=== PATIENT | female | born 1995 | race Caucasian/White ===

== ENCOUNTER 2016-08-21 23:27 | Inpatient (IN) | payer OTHER ==
[~2016-08-21] VITALS: Ht 157.5 cm; Wt 83.6 kg
[~2016-08-21 23:27] MED LIST: NO MEDS; PREN1TAB49 PO
[2016-08-21 23:53] VITALS: Ht 157.5 cm; Wt 83.6 kg
[2016-08-22] VITALS: BP 109/57; PULSE 81; RESP 20
[2016-08-22] MEDS ORDERED: ONDANSETRON 4 MG INJ IV STA (00:01)
[2016-08-22] MEDS ORDERED: BUTORPHANOL 2 MG INJ IV ONE (00:30)
[2016-08-22] MEDS ORDERED: LACTATED RINGER'S 1,000 ML IV ONE (00:30)
[2016-08-22 01:00] LABS: ADD SCAN DIFF NO
[2016-08-22 01:02] LABS: BASOPHILS % 0.2 % (0.0-2.0); EOSINOPHILS # 0.1 10^3/ul (0.0-0.5); EOSINOPHILS % 0.9 % (0.0-7.0); HEMATOCRIT 31.9 % (37.0-47.0); HEMOGLOBIN 10.6 g/dl (12.0-16.0); LYMPHOCYTES # 1.3 10^3/ul (0.8-2.9); LYMPHOCYTES % 12.9 % (15.0-51.0); MEAN CORPUSCULAR HEMOGLOBIN 30.5 pg (29.0-33.0); MEAN CORPUSCULAR HGB CONC 33.2 g/dl (32.0-37.0); MEAN CORPUSCULAR VOLUME 91.7 fl (82.0-101.0); MEAN PLATELET VOLUME 10.3 fl (7.4-10.4); MONOCYTE # 0.6 10^3/ul (0.3-0.9); MONOCYTES % 6.4 % (0.0-11.0); NEUTROPHILS % 79.1 % (39.0-77.0); PLATELET COUNT 271 10^3/UL (140-415); RED BLOOD COUNT 3.48 10^6/ul (4.20-5.40); RED CELL DISTRIBUTION WIDTH 13.6 % (11.5-14.5); WHITE BLOOD COUNT 10.1 10^3/ul (4.8-10.8)
[2016-08-22 01:11] LABS: ADD UMIC NO; UR BILIRUBIN (Dip) NEGATIVE (NEGATIVE); UR BLOOD (Dip) NEGATIVE (NEGATIVE); UR CLARITY CLEAR (CLEAR); UR COLOR LT. YELLOW (YELLOW); UR GLUCOSE (Dip) NEGATIVE (NEGATIVE); UR KETONES (Dip) NEGATIVE (NEGATIVE); UR LEUKOCYTE ESTERASE (Dip) NEGATIVE (NEGATIVE); UR NITRITE (Dip) NEGATIVE (NEGATIVE); UR TOTAL PROTEIN (Dip) NEGATIVE (NEGATIVE); UR UROBILINOGEN (Dip) 0.2 E.U./dL (0.1-1.0)
[2016-08-22] MEDS: LACTATED RINGER'S 1,000 ML IV* SCH ×3 (01:17→16:00)
[2016-08-22 01:25] LABS: ALBUMIN 3.7 g/dl (3.3-4.9); ALBUMIN/GLOBULIN RATIO 1.27; CALCIUM 8.9 mg/dl (8.4-10.2); CREATININE 0.47 mg/dl (0.44-1.00); POTASSIUM 3.7 mmol/L (3.5-5.1); TOTAL PROTEIN 6.6 g/dl (6.1-8.1)
--- NOTE | 2016-08-22 02:18 | RADRPT ---
PROCEDURE: ULTRASOUND BIOPHYSICAL PROFILE CLINICAL INDICATION: 21-year-old female in labor for viability. TECHNIQUE: Multiple sonographic images were obtained in order to perform a biophysical profile The images were reviewed on a PACS workstation. COMPARISON: None. FINDINGS: The cervix appears closed with a length of 4.2 cm. There is a single viable intrauterine gestation. There is a breech presentation. Cardiac activity is present at 166 beats per minute. The placenta is anterior. The results of the biophysical profile are as follows: breathing movement = 2/2 Gross body movement = 2/2 tone = 2/2 Qualitative amniotic fluid volume = 2/2 Amniotic fluid index equals 15.9 cm. This yields a biophysical profile score of 8/8. IMPRESSION: Biophysical profile score is 8/8. .Yomi Kamara MD, Date Time Electronically viewed and signed by .Yomi Kamara MD, MD on 08/22/2016 02:18 .M/
--- NOTE | 2016-08-22 02:21 | RADRPT ---
PROCEDURE: ULTRASOUND OBSTETRICAL CLINICAL INDICATION: 21-year-old female in labor for size and date determination. TECHNIQUE: Multiple sonographic images of the pelvis were obtained. The images were reviewed on a PACS workstation. COMPARISON: Ultrasound biophysical profile obtained concurrently. FINDINGS: There is a single viable intrauterine gestation. Cardiac activity is present with 152 beats per min haley. There is a breech presentation. Measurements were made in order to determine age. The res ults are as follows: BPD = 7.07 cm, HC = 26.02 cm, AC = 24.53 cm, FL = 5.24 cm. This yields and estimated gestational ag e of approximately 28 weeks 2 days. The estimated date of delivery is November 12, 2016. The EFW = 1224 +/- 184 g (2 lb 11 oz). The GP is 7%. The placenta is anterior. There is no evidence for an abruption or placenta previa. IMPRESSION: Single viable intrauterine gestation of approximately 28 weeks 2 days with breech presentation. The estimated date of delivery is November 12, 2016. .Yomi Kamara MD, Date Time Electronically viewed and signed by .Yomi Kamara MD, on 08/22/2016 02:21 .M/
--- NOTE | 2016-08-22 02:24 | RADRPT ---
PROCEDURE: ULTRASOUND LIMITED ABDOMEN CLINICAL INDICATION: 21-year-old female with abdominal pain. TECHNIQUE: Multiple sonographic of the right upper quadrant of the abdomen were obtained. The imag es were reviewed on a PACS workstation. COMPARISON: None. FINDINGS: The pancreas is partially visualized and is otherwise without abnormal echogenicity. The liver displays normal echogenicity. The liver measures 16.8 cm in length. No evidence of intrah epatic biliary ductal dilatation is seen. The portal and hepatic veins are unremarkable. The gallbladder contains mild layering echogenic sludge. There is no evidence for shadowing stones. The gallbladder wall thickness is within normal limits measuring 2.1 mm. No pericholecystic fluid is seen. The common bile duct measures 3.3 mm and is not dilated. The right kidney displays normal echogenicity. The right kidney measures 10.3 cm in maximal length. There is mild right-sided hydronephrosis. No free fluid is seen. IMPRESSION: 1. Minimal sludge within the gallbladder. 2. Mild right-sided hydronephrosis. .Yomi Kamara MD, Date Time Electronically viewed and signed by .Yomi Kamara MD, on 08/22/2016 02:24 .M/
[2016-08-22] MEDS ORDERED: LACTATED RINGER'S 1,000 ML IV SCH (02:38)
--- NOTE | 2016-08-22 02:51 | HP ---
Date/Time of Note Date/Time of Note DATE: 08/22/16 TIME: 02:46 OB - History Hx of Present Free Text/Dictation @29+wks GA with Abdominal pain : 2 Para: 1 Care: Good Care Ultrasounds: Normal mid trimester US Obstetrical Complications: None Medical Complications: None Past Family/Social History * Past Medical, Surgical, Family and Obstetric Histories reviewed from chart. OB Admission Exam Vital Signs Vital Signs Vital Signs Date Time Temp Pulse Resp B/P Pulse Ox O2 Delivery O2 Flow Rate FiO2 08/22/16 00:00 97.7 81 20 109/57 Room Air Physical Exam Abdomen: Abnormal (RLQ tenderness) Extremities: Normal Cervical Dilatation: None Membranes: Intact Heart Rate: 140's Accelerations: Accelerations Present Decelerations: No Decelerations Varibility: Moderate Contractions on Admission: None Last 72 hours Lab Results CBC & BMP 08/22/16 00:55 Liver Function Test 08/22/16 00:55 Alanine Aminotransferase (ALT/SGPT) 25 Albumin 3.7 Alkaline Phosphatase 62 Aspartate Amino Transf (AST/SGOT) 16 Direct Bilirubin 0.00 Total Protein 6.6 OB Assessment/Plan Reason for admission: observation Plan: Expectant Management Other plan: Suspected Appendicitis: MRI Surgical consult Prenatology Neonatology Consult NPO Pain management Hospitalist consult ARIAN JEFFERSON M.D. Aug 22, 2016 02:51
--- NOTE | 2016-08-22 02:53 | QN ---
Documentation Comment ,call center coordinator hospitalist informed) ARIAN JEFFERSON M.D. Aug 22, 2016 02:53
[2016-08-22] MEDS: BUTORPHANOL 2 MG INJ IV PRN ×6 (05:21→18:25)
--- NOTE | 2016-08-22 15:45 | CONS ---
Date/Time of Note Date/Time of Note DATE: 08/22/16 TIME: 15:40 Assessment/Plan Assessment/Plan Chief Complaint/Hosp Course 21-year-old female 29 weeks with abdominal pain * Patient has had her appendix removed at 7 year of age. The remote possibility for stump appendicitis may exist, however, this is unlikely given the patient's history and clinical exam findings. * There does not appear to be any acute indication for surgical intervention. * Continue management per TUFTER HAND * If the patient continues to have pain may want to consider MRI. The above was discussed with the patient and the nurse at the bedside in full detail. I will be available to reconsult as needed. Problems: Consultation Date/Type/Reason Admit Date/Time Aug 22, 2016 at 02:36 Date of Consultation: Aug 22, 2016 Type of Consultation: GENERAL SURGERY Reason for Consultation Abdominal pain Hx of Present Illness The patient is a 21-year-old female who is 29 weeks who presented to the emergency room complaining of a 3 day history of abdominal pain. She describes the pain as being located in the right lower quadrant, epigastrium, suprapubic area and radiates to the right flank. She reports nausea/vomiting and constipation. She denies fever. She states she had a similar episode of pain in the past approximately 3 weeks ago which resolved with Tylenol. She has been afebrile and without leukocytosis. Surgical consult was called to evaluate for appendicitis. Of note, the patient reports that she had her appendix removed when she was 7 years old. The patient states that she is hungry and has been tolerating a regular diet. A 14 point review of systems was conducted and was negative except for that which is mentioned in HPI Past Medical History Medical History: no pertinent history Past Surgical History Past Surgical Hx: appendectomy Family History Significant Family History: no pertinent family hx Social History Smoking Status: Never smoker Exam/Review of Systems Vital Signs Vitals Vital Signs Date Time Temp Pulse Resp B/P Pulse Ox O2 Delivery O2 Flow Rate FiO2 08/22/16 00:00 97.7 81 20 109/57 Room Air Intake and Output 08/21/16 08/21/16 08/22/16 14:59 22:59 06:59 Intake Total 1750 ml Output Total 800 ml Balance 950 ml Exam GENERAL: Awake, alert, oriented x 3. No acute distress. SKIN: No jaundice. HEENT: PERRLA, EOMI, No Scleral Icterus NECK: Supple without JVD CARDIOVASCULAR: S1S2, regular rate and rhythm. No murmurs appreciated. RESPIRATORY: Clear to auscultation bilaterally. ABDOMEN: Gravid, soft, bowel sounds present, nondistended, there is mild epigastric tenderness to palpation and mild suprapubic tenderness to palpation. There is right lower quadrant tenderness to palpation. There is no evidence of rebound, guarding or diffuse peritonitis. EXTREMITIES: Free range of motion x 4. No cyanosis, edema, or clubbing. NEUROLOGIC: Cranial nerves II-XII are intact. Sensation is intact grossly. Results Result Diagram: 08/22/165408/22/1654 Results 24 hrs Laboratory Tests Test 08/22/16 00:15 08/22/16 00:55 Urine Color LT. YELLOW Urine Clarity CLEAR Urine pH 6.5 Urine Specific [place] 1.020 Urine Ketones NEGATIVE Urine Nitrite NEGATIVE Urine Bilirubin NEGATIVE Urine Urobilinogen 0.2 E.U./dL Urine Leukocyte Esterase NEGATIVE Urine Hemoglobin NEGATIVE Urine Glucose NEGATIVE Urine Total Protein NEGATIVE White Blood Count 10.1 Red Blood Count 3.48 L Hemoglobin 10.6 L Hematocrit 31.9 L Mean Corpuscular Volume 91.7 Mean Corpuscular Hemoglobin 30.5 Mean Corpuscular Hemoglobin Concent 33.2 Red Cell Distribution Width 13.6 Platelet Count 271 Mean Platelet Volume 10.3 Neutrophils % 79.1 H Lymphocytes % 12.9 L Monocytes % 6.4 Eosinophils % 0.9 Basophils % 0.2 Nucleated Red Blood Cells % 0.0 Neutrophils # 8.0 H Lymphocytes # 1.3 Monocytes # 0.6 Eosinophils # 0.1 Basophils # 0.0 Nucleated Red Blood Cells # 0.0 Sodium Level 139 Potassium Level 3.7 Chloride Level 110 Carbon Dioxide Level 19 L Anion Gap 14 Blood Urea Nitrogen 7 Creatinine 0.47 Glucose Level 91 Calcium Level 8.9 Total Bilirubin 0.0 L Direct Bilirubin 0.00 Indirect Bilirubin 0.0 Aspartate Amino Transf (AST/SGOT) 16 Alanine Aminotransferase (ALT/SGPT) 25 Alkaline Phosphatase 62 Total Protein 6.6 Albumin 3.7 Globulin 2.90 Albumin/Globulin Ratio 1.27 Amylase Level 92 Lipase 117 Medications Medications Current Medications Lactated Ringer's (Lr) 1,000 ml @ 125 mls/hr Q8H IV* Last administered on 08/22 07:32; Admin Dose 125 MLS/HR; Start 08/22/16 at 00:30 Butorphanol Tartrate (Stadol) 1 mg Q4 PRN IV PAIN Last administered on 14:45; Admin Dose 1 MG; Start 08/22/16 at 03:00 Procedures Procedures PROCEDURE: ULTRASOUND LIMITED ABDOMEN CLINICAL INDICATION: 21-year-old female with abdominal pain. TECHNIQUE: Multiple sonographic of the right upper quadrant of the abdomen were obtained. The images were reviewed on a PACS workstation. COMPARISON: None. FINDINGS: The pancreas is partially visualized and is otherwise without abnormal echogenicity. The liver displays normal echogenicity. The liver measures 16.8 cm in length. No evidence of intrahepatic biliary ductal dilatation is seen. The portal and hepatic veins are unremarkable. The gallbladder contains mild layering echogenic sludge. There is no evidence for shadowing stones. The gallbladder wall thickness is within normal limits measuring 2.1 mm. No pericholecystic fluid is seen. The common bile duct measures 3.3 mm and is not dilated. The right kidney displays normal echogenicity. The right kidney measures 10.3 cm in maximal length. There is mild right-sided hydronephrosis. No free fluid is seen. IMPRESSION: 1. Minimal sludge within the gallbladder. 2. Mild right-sided hydronephrosis. .Yomi Kamara MD, MD Date Time Electronically viewed and signed by .Yomi Kamara MD, MD on 08/22/2016 02:24 .M/ CC: ARIAN JEFFERSON M.D., MICHAEL A. MD Aug 22, 2016 15:45
--- NOTE | 2016-08-22 17:08 | CONS ---
Date/Time of Note Date/Time of Note DATE: 08/22/16 TIME: 16:58 Assessment/Plan Assessment/Plan Additional Assessment/Plan 21 yo F at 29wks and 6 days with R sided flank pain and abdominal pain ( non epigastric) likely CRISS in origin Recommendations: Patient already had abdominal ultrasound that does not show any significant findings other than the right-sided hydronephrosis which is likely associated. Considering that her pain is on the same side, there is a possibility of a right-sided nephrolithiasis however, due to patient's gravid status, were unable to do an x-ray or CAT scan which is better to visualize kidney stones. In view of that, the treatment would likely be the same to include pain control and aggressive IV hydration if she indeed had kidney stones. She also has pain is also located in the lower abdominal region in the left groin as well as umbilical area, which are most likely associated with either [place] Solomon contractions or musculoskeletal in origin. And as such I think for now we should focus on pain management and hydration and reevaluate patient and see how she does. Unfortunately patient is unable to get an MRI of the abdomen because she has braces. Thanks for the Consult. We will follow with you. Consultation Date/Type/Reason Admit Date/Time Aug 22, 2016 at 02:36 Date of Consultation: Aug 22, 2016 Type of Consultation: Medical Reason for Consultation Evaluation for epigastric pain. Referring Provider: CATHERINE MATHIS MD Hx of Present Illness Was called to see this 19-year-old female who had presented today with right- sided flank pain, as well as pain in the infra epigastric area. She was referred to us for epigastric pain but her pain is located more in the superior portion of her gravid abdomen. She is a 2 para 1 at 29 weeks and 6 days and has had an uneventful so far. She has had no nausea or vomiting associated with said pain, she has had no fever. She denies chest pain or shortness of breath. Pain is relieved by intravenous pain medicine given by the ladies underwear operator, but she states the medication just puts her to sleep and when she wakes up the pain is very again. Per the obstetric nurses, the patient has had no contractions. However pain sounds suspiciously like pseudo- contractions. She had an abdominal ultrasound which I have reviewed I does show some mild right-sided hydronephrosis but there is no evidence of kidney stones on that study. I . ROS: CONSTITUTIONAL: denies fever, chills, weight loss, weight gain HEENT: denies headaches, any vertigo, any sore throat or rhinorrhea. Eyes: No double or blurred vision or eye pain. CARDIOVASCULAR: no chest discomfort, chest pain, irregular rhythm, tachycardia or diaphoresis. RESPIRATORY: denies cough or shortness of breath or wheezing. GASTROINTESTINAL: The patient denies any nausea, vomiting, diarrhea or abdominal pain. GENITOURINARY: denies dysuria, frequency, urgency or hematuria. MUSCULOSKELETAL: also denies myalgias, arthralgias or edema. SKIN: denies rash or jaundice NEUROLOGIC: denies weakness, dizziness, focal neurological change or headache. PSYCHIATRIC: denies history of depression in the past, any suicidal ideation. substance abuse. ENDOCRINE: denies polyuria, polydipsia or hot or cold intolerance. HEMATOLOGIC: denies history of easy bruising, anemia or eczema. Past Medical History Medical History: no pertinent history Past Surgical History Past Surgical Hx: appendectomy Family History Significant Family History: no pertinent family hx Social History Alcohol Use: none Smoking Status: Never smoker Drug Use: none Exam/Review of Systems Vital Signs Vitals Vital Signs Date Time Temp Pulse Resp B/P Pulse Ox O2 Delivery O2 Flow Rate FiO2 08/22/16 00:00 97.7 81 20 109/57 Room Air Intake and Output 08/21/16 08/21/16 08/22/16 15:00 23:00 07:00 Intake Total 1875 ml Output Total 800 ml Balance 1075 ml Exam GENERAL APPEARANCE: Well developed, well nourished, anxiety SKIN: Gross inspection of the skin reveals no rashes, ulcerations or petechiae. HEENT: The sclerae were anicteric and conjunctivae were pink and moist. Extraocular movements were intact and pupils were equal, round, and reactive to light with normal accommodation. External inspection of the ears and nose showed no scars, lesions, or masses. Posterior pharynx was clear of erythema or exudate NECK: Supple and symmetric. There was no thyroid enlargement, and no tenderness , or masses were felt. CHEST: Normal AP diameter and movement . LUNGS: Auscultation of the lungs revealed normal breath sounds without any other adventitious sounds or rubs. CARDIOVASCULAR: There was a regular rate and rhythm without any murmurs, gallops , rubs. The carotid pulses were normal and 2+ bilaterally without bruits. Radial pulses were 2+ and symmetric. ABDOMEN: Soft and nontender with normal bowel sounds. No ascites was noted. LYMPH NODES: No lymphadenopathy was appreciated in the neck. MUSCULOSKELETAL: There was no tenderness or effusions noted. Muscle strength and tone were normal. EXTREMITIES: No cyanosis, clubbing or edema. NEUROLOGIC: Alert and oriented x 3. Normal affect PSYCHIATRIC: anxious Results Result Diagram: 08/22/16 0055 08/22/16 0055 Results 24 hrs Laboratory Tests Test 08/22/16 00:15 08/22/16 00:55 Urine Color LT. YELLOW Urine Clarity CLEAR Urine pH 6.5 Urine Specific [place] 1.020 Urine Ketones NEGATIVE Urine Nitrite NEGATIVE Urine Bilirubin NEGATIVE Urine Urobilinogen 0.2 E.U./dL Urine Leukocyte Esterase NEGATIVE Urine Hemoglobin NEGATIVE Urine Glucose NEGATIVE Urine Total Protein NEGATIVE White Blood Count 10.1 Red Blood Count 3.48 L Hemoglobin 10.6 L Hematocrit 31.9 L Mean Corpuscular Volume 91.7 Mean Corpuscular Hemoglobin 30.5 Mean Corpuscular Hemoglobin Concent 33.2 Red Cell Distribution Width 13.6 Platelet Count 271 Mean Platelet Volume 10.3 Neutrophils % 79.1 H Lymphocytes % 12.9 L Monocytes % 6.4 Eosinophils % 0.9 Basophils % 0.2 Nucleated Red Blood Cells % 0.0 Neutrophils # 8.0 H Lymphocytes # 1.3 Monocytes # 0.6 Eosinophils # 0.1 Basophils # 0.0 Nucleated Red Blood Cells # 0.0 Sodium Level 139 Potassium Level 3.7 Chloride Level 110 Carbon Dioxide Level 19 L Anion Gap 14 Blood Urea Nitrogen 7 Creatinine 0.47 Glucose Level 91 Calcium Level 8.9 Total Bilirubin 0.0 L Direct Bilirubin 0.00 Indirect Bilirubin 0.0 Aspartate Amino Transf (AST/SGOT) 16 Alanine Aminotransferase (ALT/SGPT) 25 Alkaline Phosphatase 62 Total Protein 6.6 Albumin 3.7 Globulin 2.90 Albumin/Globulin Ratio 1.27 Amylase Level 92 Lipase 117 Medications Medications Current Medications Lactated Ringer's (Lr) 1,000 ml @ 125 mls/hr Q8H IV* Last administered on 08/22t 16:00; Admin Dose 125 MLS/HR; Start 08/22/16 at 00:30 Butorphanol Tartrate (Stadol) 1 mg Q4 PRN IV PAIN Last administered on t 16:31; Admin Dose 1 MG; Start 08/22/16 at 03:00 Procedures Procedures PROCEDURE: ULTRASOUND LIMITED ABDOMEN CLINICAL INDICATION: 21-year-old female with abdominal pain. TECHNIQUE: Multiple sonographic of the right upper quadrant of the abdomen were obtained. The images were reviewed on a PACS workstation. COMPARISON: None. FINDINGS: The pancreas is partially visualized and is otherwise without abnormal echogenicity. The liver displays normal echogenicity. The liver measures 16.8 cm in length. No evidence of intrahepatic biliary ductal dilatation is seen. The portal and hepatic veins are unremarkable. The gallbladder contains mild layering echogenic sludge. There is no evidence for shadowing stones. The gallbladder wall thickness is within normal limits measuring 2.1 mm. No pericholecystic fluid is seen. The common bile duct measures 3.3 mm and is not dilated. The right kidney displays normal echogenicity. The right kidney measures 10.3 cm in maximal length. There is mild right-sided hydronephrosis. No free fluid is seen. IMPRESSION: 1. Minimal sludge within the gallbladder. 2. Mild right-sided hydronephrosis. .Yomi Kamara MD, MD Date Time Electronically viewed and signed by .Yomi Kamara MD, MD on 08/22/2016 02:24 .M/ CC: ARIAN JEFFERSON M.D., [place] M. Aug 22, 2016 17:08
[2016-08-22] MEDS ORDERED: HYDROCODONE/APAP (5/325) TAB PO PRN (17:30)
[2016-08-22] MEDS ORDERED: SOD CHLORIDE 0.9% 1,000 ML IV SCH (17:30)
[2016-08-22] MEDS: ONDANSETRON 4 MG INJ IV PRN ×2 (18:42→23:53)
[2016-08-22] MEDS: DEXTROSE 5%-LR 1,000 ML IV SCH (23:50)
[2016-08-23] MEDS: BUTORPHANOL 2 MG INJ IV PRN ×3 (00:01→15:10)
[2016-08-23] MEDS: DEXTROSE 5%-LR 1,000 ML IV SCH (07:17)
[2016-08-23] MEDS: ONDANSETRON 4 MG INJ IV PRN (07:44)
--- NOTE | 2016-08-23 10:03 | CONS ---
Date/Time of Note Date/Time of Note DATE: 08/23/16 TIME: 10:02 Assessment/Plan Assessment/Plan Additional Assessment/Plan 21 yo F at 29wks and 6 days with R sided flank pain and abdominal pain ( non epigastric) likely CRISS in origin Recommendations: Patient already had abdominal ultrasound that does not show any significant findings other than the right-sided hydronephrosis which is likely associated. Considering that her pain is on the same side, there is a possibility of a right-sided nephrolithiasis however, due to patient's gravid status, were unable to do an x-ray or CAT scan which is better to visualize kidney stones. In view of that, the treatment would likely be the same to include pain control and aggressive IV hydration if she indeed had kidney stones. She also has pain is also located in the lower abdominal region in the left groin as well as umbilical area, which are most likely associated with either [place] Solomon contractions or musculoskeletal in origin. And as such I think for now we should focus on pain management and hydration and reevaluate patient and see how she does. Unfortunately patient is unable to get an MRI of the abdomen because she has braces. With persistent pain in R flank, will treat empirically for Pyelonephritis Thanks for the Consult. We will follow with you. Consultation Date/Type/Reason Admit Date/Time Aug 22, 2016 at 02:36 Initial Consult Date 08/22/16 Type of Consultation: Medical Referring Provider: CATHERINE MATHIS MD 24 HR Interval Summary Free Text/Dictation patient feels slightly better still with significant pain in R flank Exam/Review of Systems Vital Signs Vitals Vital Signs Date Time Temp Pulse Resp B/P Pulse Ox O2 Delivery O2 Flow Rate FiO2 08/22/16 00:00 97.7 81 20 109/57 Room Air Intake and Output 08/22/16 08/22/16 08/23/16 15:00 23:00 07:00 Intake Total 1000 ml 1425 ml 875 ml Output Total 1550 ml 1800 ml Balance 1000 ml -125 ml -925 ml Exam Constitutional: alert, oriented Head: atraumatic, normocephalic Neck: non-tender, supple Respiratory: clear to auscultation Cardiovascular: regular rate and rhythm Gastrointestinal: nl liver, spleen, non-tender, soft, R flank still sore and tender Extremities: normal pulses Results Result Diagram: 6/12/17 0055 08/22/16 0055 Medications Medications Current Medications Acetaminophen/ Hydrocodone Bitart ([place] (5/325)) 1 tab Q6H PRN PO pain Last administered on 08/22/16 18:22; Admin Dose 1 TAB; Start 08/22/16 at 17:30 Ondansetron HCl (Zofran Inj) 4 mg Q6H PRN IV NAUSEA AND/OR VOMITING Last administered on 08/23/16 07:44; Admin Dose 4 MG; Start 08/22/16 at 19:00 Butorphanol Tartrate 2 mg 2 mg Q4 PRN IV PAIN Last administered on 08/23/16 07 :45; Admin Dose 2 MG; Start 08/22/16 at 23:30 Dextrose/Lactated Ringer's (D5-Lr) 1,000 ml @ 125 mls/hr Q8H IV Last administered on 08/23/16 07:17; Admin Dose 125 MLS/HR; Start 08/22/16 at 23:30 Procedures Procedures PROCEDURE: ULTRASOUND LIMITED ABDOMEN CLINICAL INDICATION: 21-year-old female with abdominal pain. TECHNIQUE: Multiple sonographic of the right upper quadrant of the abdomen were obtained. The images were reviewed on a PACS workstation. COMPARISON: None. FINDINGS: The pancreas is partially visualized and is otherwise without abnormal echogenicity. The liver displays normal echogenicity. The liver measures 16.8 cm in length. No evidence of intrahepatic biliary ductal dilatation is seen. The portal and hepatic veins are unremarkable. The gallbladder contains mild layering echogenic sludge. There is no evidence for shadowing stones. The gallbladder wall thickness is within normal limits measuring 2.1 mm. No pericholecystic fluid is seen. The common bile duct measures 3.3 mm and is not dilated. The right kidney displays normal echogenicity. The right kidney measures 10.3 cm in maximal length. There is mild right-sided hydronephrosis. No free fluid is seen. IMPRESSION: 1. Minimal sludge within the gallbladder. 2. Mild right-sided hydronephrosis. .Yomi Kamara MD, MD Date Time Electronically viewed and signed by .Yomi Kamara MD, on 08/22/2016 02:24 .M/ CC: ARIAN JEFFERSON M.D., [place] M. Aug 23, 2016 10:03
[2016-08-23] MEDS: DEXTROSE 5%-0.45% NACL 1,000 ML IV SCH ×2 (11:29→20:46)
[2016-08-23] MEDS: CEFTRIAXONE 1 GM/50 ML (PMX) 50 ML IVPB SCH (11:29)
[2016-08-23] MEDS: FAMOTIDINE 20 MG INJ IV SCH ×2 (12:26→21:26)
--- NOTE | 2016-08-23 14:03 | PN ---
Date/Time of Note Date/Time of Note DATE: 08/23/16 TIME: 13:55 OB Subjective Subjective Subjective Her thighs afebrile resting complaining of back pain that is constant shooting towards the posterior aspect of her thigh, seen by the perinatologist suspected pressure on sciatic nerve, has been sedated with 2 mg of Stadol this morning and at this time which is 1400 not complaining of pain., Had only 1 dose of Zofran no vomiting today, Current Medications Medications (Trade) Dose Ordered Sig/Reymundo Route PRN Reason Start Time Stop Time Status Last Admin Dose Admin Lactated Ringer's 1,000 ml @ 125 mls/hr Q8H IV* 08/22/16 00:30 08/22/16 17:05 DC 08/22/16 16:00 Lactated Ringer's (Lr) 1,000 ml @ 1,000 mls/hr Q1H ONCE IV 08/22/16 00:30 08/22/16 01:29 DC 08/22/16 00:26 Ondansetron HCl (Zofran Inj) 4 mg ONCE STAT IV 08/22/16 00:01 08/22/16 00:09 DC 08/22/16 00:57 Butorphanol Tartrate 1 mg 1 mg ONCE ONCE IV 08/22/16 00:30 08/22/16 00:31 DC 08/22/16 01:07 Lactated Ringer's (Lr) 1,000 ml @ 125 mls/hr Q8H IV 08/22/16 02:38 08/22/16 02:55 DC Butorphanol Tartrate 1 mg 1 mg Q4 PRN IV PAIN 08/22/16 03:00 08/22/16 23:31 DC 08/22/16 18:25 Sodium Chloride (NS) 1,000 ml @ 125 mls/hr Q8H IV 08/22/16 17:30 08/22/16 23:31 DC 08/22/16 18:20 Acetaminophen/ Hydrocodone Bitart ([place] (5/325)) 1 tab Q6H PRN PO pain 08/22/16 17:30 08/22/16 18:22 Ondansetron HCl (Zofran Inj) 4 mg Q6H PRN IV NAUSEA AND/OR VOMITING 08/22/16 19:00 08/23/16 07:44 Butorphanol Tartrate 2 mg 2 mg Q4 PRN IV PAIN 08/22/16 23:30 08/23/16 07:45 Dextrose/Lactated Ringer's 1,000 ml @ 125 mls/hr Q8H IV 08/22/16 23:30 08/23/16 10:14 DC 08/23/16 07:17 Ceftriaxone Sodium 50 ml @ 100 mls/hr Q24H IVPB 08/23/16 11:00 08/23/16 11:29 Dextrose/Sodium Chloride (D5-1/2ns) 1,000 ml @ 100 mls/hr Q10H IV 08/23/16 11:00 08/23/16 11:29 Famotidine (Pepcid Iv) 20 mg BID IV 08/23/16 12:00 08/23/16 12:26 we will continue expecting management CATHERINE MATHIS MD Aug 23, 2016 14:03
[2016-08-24] MEDS: DEXTROSE 5%-0.45% NACL 1,000 ML IV SCH ×2 (06:25→16:54)
[2016-08-24 07:09] LABS: ADD SCAN DIFF NO
[2016-08-24 07:10] LABS: BASOPHILS % 0.3 % (0.0-2.0); EOSINOPHILS # 0.1 10^3/ul (0.0-0.5); EOSINOPHILS % 1.7 % (0.0-7.0); HEMATOCRIT 31.6 % (37.0-47.0); HEMOGLOBIN 10.5 g/dl (12.0-16.0); LYMPHOCYTES # 1.3 10^3/ul (0.8-2.9); LYMPHOCYTES % 20.1 % (15.0-51.0); MEAN CORPUSCULAR HEMOGLOBIN 30.5 pg (29.0-33.0); MEAN CORPUSCULAR HGB CONC 33.2 g/dl (32.0-37.0); MEAN CORPUSCULAR VOLUME 91.9 fl (82.0-101.0); MEAN PLATELET VOLUME 10.6 fl (7.4-10.4); MONOCYTE # 0.6 10^3/ul (0.3-0.9); MONOCYTES % 9.1 % (0.0-11.0); NEUTROPHIL # 4.4 10^3/ul (1.6-7.5); NEUTROPHILS % 68.5 % (39.0-77.0); PLATELET COUNT 276 10^3/UL (140-415); RED BLOOD COUNT 3.44 10^6/ul (4.20-5.40); RED CELL DISTRIBUTION WIDTH 13.7 % (11.5-14.5); WHITE BLOOD COUNT 6.4 10^3/ul (4.8-10.8)
[2016-08-24 08:03] LABS: ALBUMIN 3.8 g/dl (3.3-4.9); ALBUMIN/GLOBULIN RATIO 1.4; BILIRUBIN,INDIRECT 0.1 mg/dl (0-1.1); BILIRUBIN,TOTAL 0.1 mg/dl (0.2-1.3); CALCIUM 8.5 mg/dl (8.4-10.2); CREATININE 0.52 mg/dl (0.44-1.00); POTASSIUM 4.1 mmol/L (3.5-5.1); TOTAL PROTEIN 6.5 g/dl (6.1-8.1)
[2016-08-24] MEDS: FAMOTIDINE 20 MG INJ IV SCH ×2 (09:10→21:11)
[2016-08-24] MEDS: CEFTRIAXONE 1 GM/50 ML (PMX) 50 ML IVPB SCH (10:44)
[2016-08-24] MEDS: MAGNESIUM HYDROXIDE 30ML CUP PO PRN ×2 (13:53→21:11)
--- NOTE | 2016-08-24 17:31 | QN ---
Documentation Comment Afebrile vital signs resting in bed her pain has subsided from a scale of 8 and 9 to 2 , considering all the other workup and consultation has been negative considering a.m. discharge CATHERINE MATHIS MD Aug 24, 2016 17:31
--- NOTE | 2016-08-24 18:37 | CONS ---
Date/Time of Note Date/Time of Note DATE: 08/24/16 TIME: 18:33 Assessment/Plan Assessment/Plan Chief Complaint/Hosp Course 21 yo F at 29wks and 6 days with 1. R sided flank pain and abdominal pain and likely atypical pyelonephritis ( Gram variable) 2. associated Hydronephrosis likely contributing to #1 Recommendations: * Continue current abx * f/u final cultures and sensitivity * Continue pain control * possible d/c on orals once sensitivity is available Thanks for the Consult. We will follow with you. Problems: Consultation Date/Type/Reason Admit Date/Time Aug 22, 2016 at 02:36 Initial Consult Date 08/22/16 Type of Consultation: Medical Referring Provider: CATHERINE MATHIS MD 24 HR Interval Summary Free Text/Dictation patient still having pain, but better able to tolerate Exam/Review of Systems Vital Signs Vitals Vital Signs Date Time Temp Pulse Resp B/P Pulse Ox O2 Delivery O2 Flow Rate FiO2 08/22/16 00:00 97.7 81 20 109/57 Room Air Intake and Output 08/23/16 08/23/16 08/24/16 14:59 22:59 06:59 Intake Total 800 ml 1815 ml 970 ml Output Total 2200 ml 1800 ml Balance 800 ml -385 ml -830 ml Exam Constitutional: alert, oriented, more comfortable ? Head: atraumatic, normocephalic Neck: non-tender, supple Respiratory: clear to auscultation Cardiovascular: regular rate and rhythm Gastrointestinal: nl liver, spleen, non-tender, soft, R flank still sore and tender Extremities: normal pulses Results Result Diagram: 08/24/16 0600 08/24/16 0600 Results 24 hrs Laboratory Tests Test 08/24/16 06:00 White Blood Count 6.4 # Red Blood Count 3.44 L Hemoglobin 10.5 L Hematocrit 31.6 L Mean Corpuscular Volume 91.9 Mean Corpuscular Hemoglobin 30.5 Mean Corpuscular Hemoglobin Concent 33.2 Red Cell Distribution Width 13.7 Platelet Count 276 Mean Platelet Volume 10.6 H Neutrophils % 68.5 Lymphocytes % 20.1 Monocytes % 9.1 Eosinophils % 1.7 Basophils % 0.3 Nucleated Red Blood Cells % 0.0 Neutrophils # 4.4 Lymphocytes # 1.3 Monocytes # 0.6 Eosinophils # 0.1 Basophils # 0.0 Nucleated Red Blood Cells # 0.0 Sodium Level 139 Potassium Level 4.1 Chloride Level 108 Carbon Dioxide Level 23 Anion Gap 12 Blood Urea Nitrogen 6 L Creatinine 0.52 Glucose Level 75 Calcium Level 8.5 Total Bilirubin 0.1 L Direct Bilirubin 0.00 Indirect Bilirubin 0.1 Aspartate Amino Transf (AST/SGOT) 14 L Alanine Aminotransferase (ALT/SGPT) 28 Alkaline Phosphatase 55 Total Protein 6.5 Albumin 3.8 Globulin 2.70 Albumin/Globulin Ratio 1.40 Medications Medications Current Medications Acetaminophen/ Hydrocodone Bitart ([place] (5/325)) 1 tab Q6H PRN PO pain Last administered on 08/22/16 18:22; Admin Dose 1 TAB; Start 08/22/16 at 17:30 Ondansetron HCl (Zofran Inj) 4 mg Q6H PRN IV NAUSEA AND/OR VOMITING Last administered on 08/23/16 07:44; Admin Dose 4 MG; Start 08/22/16 at 19:00 Butorphanol Tartrate 2 mg 2 mg Q4 PRN IV PAIN Last administered on 08/23/16 15 :10; Admin Dose 2 MG; Start 08/22/16 at 23:30 Ceftriaxone Sodium 50 ml @ 100 mls/hr Q24H IVPB Last administered on 10:44; Admin Dose 100 MLS/HR; Start 08/23/16 at 11:00 Dextrose/Sodium Chloride (D5-1/2ns) 1,000 ml @ 100 mls/hr Q10H IV Last administered on 08/24/16 16:54; Admin Dose 100 MLS/HR; Start 08/23/16 at 11:00 Famotidine (Pepcid Iv) 20 mg BID IV Last administered on 08/24/16 09:10; Admin Dose 20 MG; Start 08/23/16 at 12:00 Magnesium Hydroxide (Milk Of Mag) 30 ml BID PRN PO CONSTIPATION Last administered on 08/24/16 13:53; Admin Dose 30 ML; Start 08/24/16 at 10:00 Procedures Procedures Name: NASIM HARRELL Age/Sex: 21/F Attend Dr: CATHERINE MATHIS MD Acct: [id number] MR# : [id number] : 1995 [place] [facility] [id number] Admit: 08/22/16 Specimen: [id number] Status: Resulted Jesus: 08/22/16-0015 Rcvd: 08/22-0059 Source: CLEAN CAT[facility] Sp Descrip: Procedure Result Microbiology URINE CULTURE Preliminary Organism 1 GRAM VARIABLE RODS COLONY COUNT >100,000 CFU/ml CATARINO CASTELLON Aug 24, 2016 18:37
[2016-08-25] MEDS: DEXTROSE 5%-0.45% NACL 1,000 ML IV SCH ×3 (02:20→23:04)
[2016-08-25] MEDS: FAMOTIDINE 20 MG INJ IV SCH ×2 (08:53→22:05)
[2016-08-25] MEDS: CEFTRIAXONE 1 GM/50 ML (PMX) 50 ML IVPB SCH (10:47)
[2016-08-25] MEDS ORDERED: CIPR500T4 PO (15:05)
[2016-08-25] MEDS ORDERED: METR500T14 PO (15:05)
--- NOTE | 2016-08-25 15:15 | CONS ---
Date/Time of Note Date/Time of Note DATE: 08/25/16 TIME: 15:09 Assessment/Plan Assessment/Plan Chief Complaint/Hosp Course 21 yo F at 29wks and 6 days with 1. R sided flank pain and abdominal pain and likely atypical pyelonephritis ( Gram variable) 2. associated Hydronephrosis likely contributing to #1 Recommendations: * Continue current abx * f/u final cultures and sensitivity * Continue pain control * possible d/c on orals once sensitivity is available Thanks for the Consult. We will follow with you. Problems: Consultation Date/Type/Reason Admit Date/Time Aug 22, 2016 at 02:36 Hx of Present Illness 21 yo F at 29wks and 6 days with 1. R sided flank pain and abdominal pain and likely atypical pyelonephritis ( Gram variable) 2. associated Hydronephrosis likely contributing to #1 Recommendations: * Continue current abx * f/u final cultures and sensitivity * Continue pain control * possible d/c on orals once sensitivity is available Thanks for the Consult. We will follow with you. Past Medical History Medical History: no pertinent history Past Surgical History Past Surgical Hx: appendectomy Social History Alcohol Use: none Smoking Status: Never smoker Drug Use: none Exam/Review of Systems Vital Signs Vitals Vital Signs Date Time Temp Pulse Resp B/P Pulse Ox O2 Delivery O2 Flow Rate FiO2 08/22/16 00:00 97.7 81 20 109/57 Room Air Intake and Output 08/24/16 08/24/16 08/25/16 15:00 23:00 07:00 Intake Total 1500 ml 1250 ml 1200 ml Output Total 900 ml 800 ml 1700 ml Balance 600 ml 450 ml -500 ml Results Result Diagram: 08/24/16 0600 08/24/16 0600 Medications Medications Current Medications Acetaminophen/ Hydrocodone Bitart ([place] (5/325)) 1 tab Q6H PRN PO pain Last administered on 08/22/16 18:22; Admin Dose 1 TAB; Start 08/22/16 at 17:30 Ondansetron HCl (Zofran Inj) 4 mg Q6H PRN IV NAUSEA AND/OR VOMITING Last administered on 08/23/16 07:44; Admin Dose 4 MG; Start 08/22/16 at 19:00 Butorphanol Tartrate 2 mg 2 mg Q4 PRN IV PAIN Last administered on 08/23/16 15 :10; Admin Dose 2 MG; Start 08/22/16 at 23:30 Ceftriaxone Sodium 50 ml @ 100 mls/hr Q24H IVPB Last administered on 10:47; Admin Dose 100 MLS/HR; Start 08/23/16 at 11:00 Dextrose/Sodium Chloride (D5-1/2ns) 1,000 ml @ 100 mls/hr Q10H IV Last administered on 08/25/16 13:03; Admin Dose 100 MLS/HR; Start 08/23/16 at 11:00 Famotidine (Pepcid Iv) 20 mg BID IV Last administered on 08/25/16 08:53; Admin Dose 20 MG; Start 08/23/16 at 12:00 Magnesium Hydroxide (Milk Of Mag) 30 ml BID PRN PO CONSTIPATION Last administered on 08/24/16 21:11; Admin Dose 30 ML; Start 08/24/16 at 10:00 CATARINO CASTELLON Aug 25, 2016 15:15
[2016-08-25] MEDS ORDERED: NA PHOSPHATE/BIPHOS 133 ML ENEMA PR ONE (16:30)
--- NOTE | 2016-08-25 18:38 | CONS ---
Date/Time of Note Date/Time of Note DATE: 08/25/16 TIME: 18:36 Assessment/Plan Assessment/Plan Chief Complaint/Hosp Course 21 yo F at 29wks and 6 days with 1. R sided flank pain and abdominal pain and likely atypical pyelonephritis ( Garnerella vaginalis) 2. associated Hydronephrosis likely contributing to #1 3. Vaginal bleeding Recommendations: * ok to d/c rom med standpoint on oral abx, prescriptions given to nurses * Vaginal bleeding per OB * Continue pain control Thanks for the Consult. We will follow with you while in house.. Problems: Consultation Date/Type/Reason Admit Date/Time Aug 22, 2016 at 02:36 Initial Consult Date 08/22/16 Type of Consultation: Medical Referring Provider: CATHERINE MATHIS MD 24 HR Interval Summary Free Text/Dictation patient having some vaginal bleeding no more flank pain Exam/Review of Systems Vital Signs Vitals Vital Signs Date Time Temp Pulse Resp B/P Pulse Ox O2 Delivery O2 Flow Rate FiO2 08/22/16 00:00 97.7 81 20 109/57 Room Air Intake and Output 08/24/16 08/24/16 08/25/16 15:00 23:00 07:00 Intake Total 1500 ml 1250 ml 1200 ml Output Total 900 ml 800 ml 1700 ml Balance 600 ml 450 ml -500 ml Exam Constitutional: alert, oriented, more comfortable ? Head: atraumatic, normocephalic Neck: non-tender, supple Respiratory: clear to auscultation Cardiovascular: regular rate and rhythm Gastrointestinal: nl liver, spleen, non-tender, soft, R flank no longer tender mild blood staining on vaginal orifice Extremities: normal pulses Results Result Diagram: 08/24/16 0600 08/24/16 0600 Medications Medications Current Medications Acetaminophen/ Hydrocodone Bitart ([place] (5/325)) 1 tab Q6H PRN PO pain Last administered on 08/22/16 18:22; Admin Dose 1 TAB; Start 08/22/16 at 17:30 Ondansetron HCl (Zofran Inj) 4 mg Q6H PRN IV NAUSEA AND/OR VOMITING Last administered on 08/23/16 07:44; Admin Dose 4 MG; Start 08/22/16 at 19:00 Butorphanol Tartrate 2 mg 2 mg Q4 PRN IV PAIN Last administered on 08/23/16 15 :10; Admin Dose 2 MG; Start 08/22/16 at 23:30 Ceftriaxone Sodium 50 ml @ 100 mls/hr Q24H IVPB Last administered on 10:47; Admin Dose 100 MLS/HR; Start 08/23/16 at 11:00 Dextrose/Sodium Chloride (D5-1/2ns) 1,000 ml @ 100 mls/hr Q10H IV Last administered on 08/25/16 13:03; Admin Dose 100 MLS/HR; Start 08/23/16 at 11:00 Famotidine (Pepcid Iv) 20 mg BID IV Last administered on 08/25/16 08:53; Admin Dose 20 MG; Start 08/23/16 at 12:00 Magnesium Hydroxide (Milk Of Mag) 30 ml BID PRN PO CONSTIPATION Last administered on 08/24/16 21:11; Admin Dose 30 ML; Start 08/24/16 at 10:00 Docusate Sodium (Colace) 100 mg BID PO ; Start 08/25/16 at 21:00 CATARINO CASTELLON Aug 25, 2016 18:38
--- NOTE | 2016-08-25 19:23 | PN ---
Date/Time of Note Date/Time of Note DATE: 08/25/16 TIME: 19:19 OB Subjective Subjective Subjective Patient is 2 para 1 at 30 weeks and 2 days of gestation presented with back pain nausea vomiting OB Objective Objective Objective Urine culture positive for BV Cervical length 4.2 cm Placenta anterior no evidence of previa HEENT: WNL Heart: Rhythm Normal Lungs: Clear, Equal Abdomen: WNL Extremities: Normal Reflexes: Normal Heart Rate: 140's Accelerations: Accelerations Present Decelerations: No Decelerations Contractions on Admission: None OB Assessment/Plan Other Assessment: 30 weeks +2 days of gestation with UTI and vaginitis Other plan: Prescription for Macrobid and Flagyl was given Patient was discharged home Patient counseled to follow-up with [facility] in 2-3 days RADHA JEFFREY MD Aug 25, 2016 19:23
--- NOTE | 2016-08-25 19:24 | DS ---
Date/Time of Note Date/Time of Note DATE: 08/25/16 TIME: 19:23 Obstetrical Discharge Record Final Diagnosis Final Diagnosis: not delivered Other Final Diagnosis Urinary tract infection and vaginitis Patient discharged home with prescription for Macrobid and Flagyl Patient instructed to follow-up with [facility] in 2-3 days Condition on Discharge Physical Assessment Voiding: Yes Bowel Movement: Yes Breast: Soft, non-tender Calf Tenderness: No Patient Condition: Good RADHA JEFFREY MD Aug 25, 2016 19:24
[2016-08-25] MEDS: DOCUSATE SODIUM 100 MG CAP PO SCH (22:05)
[2016-08-25] MEDS: metroNIDAZOLE 500 MG TAB PO SCH (22:06)
--- NOTE | 2016-08-26 05:59 | CONS ---
DATE OF ADMISSION: 08/22/2016 DATE OF CONSULTATION: 08/25/2016 HISTORY OF PRESENT ILLNESS: The patient was initially admitted secondary to back pain with radiatio n into the bladder region, and the pain in the back is constant. Also, she does experience some [place] and vomiting. Ultrasound was done and showed the gallbladder has some sludge and there is no ev idence of kidney disease. There is some mild hydronephrosis, otherwise normal via ultrasound. Upon arrival to the hospital the hospitalist was consulted and she decided to place the patient on antibi otics prophylactically, as her urinalysis at that time was normal. Urinalysis was resulted today, w hich shows Gardnerella vaginalis and currently she is being treated with Flagyl. Her pain, however, has improved after initiating the antibiotics and she was about to be discharged today; however, she experienced some bleeding at the time of urination. Vaginal exam was done by Dr Rubin Rubi which showed no evidence of vaginal bleeding, so most likely the origin is urethra, and giv en the pain at traveling from back to the front and currently the blood in the urine, it is most lik sarita a kidney stone and ultrasound is not the most sensitive study to detect a kidney stone. Given the patient's status of some bleeding with urination, the decision was made to keep the patien t overnight and if there is no change in the situation, then she can go home to continue with antibi otics and follow up with her primary OB within 1 to 2 days. A cervical exam was done and it was nor mal. Dictated By: SERG ARMIJO/YUDI Conf#: [id number] DID#: [id number]
[2016-08-26] MEDS: FAMOTIDINE 20 MG INJ IV SCH (09:00)
[2016-08-26] MEDS: metroNIDAZOLE 500 MG TAB PO SCH (09:12)
[2016-08-26] MEDS: DOCUSATE SODIUM 100 MG CAP PO SCH (09:12)
== END 2016-08-26 11:00 | disposition home or self-care (01) | DRG 781 ==
LOC: OBT 23:27 → L-D 23:28 → OBT 08-22 02:36 → OBG 08-22 02:36
PROVIDERS: ADMIT Obstetrics & Gynecology; ATTEND Obstetrics & Gynecology
DX: O23.43 Unspecified infection of urinary tract in pregnancy, third trimester (principal); N13.30 Unspecified hydronephrosis; Z3A.29 29 weeks gestation of pregnancy
CPT/HCPCS: 76705; 76815; 76817; 76818; 80053; 81003; 82150; 83690; 85025; 87086; 96360; 96361; 96374; 96375; J0595; J0696; J2405; J7030; J7042; J7120; J7121

== ENCOUNTER 2016-10-30 19:26 | Outpatient (CLI) | payer OTHER ==
[~2016-10-30] VITALS: Ht 157.5 cm; Wt 92.4 kg
[~2016-10-30 19:26] MED LIST changes: +METR500T14 PO
[2016-10-30 19:53] VITALS: Ht 157.5 cm; Wt 92.4 kg
[2016-10-30 19:54] VITALS: BP 110/55; PULSE 97; RESP 18
--- NOTE | 2016-10-30 21:26 | PN ---
Triage Information Date/Time Reason for visit: lower abdominal pain and LOF with wet pants at 1900 Weeks of Gestation 39+5 /Para 1/0 Objective Vital Signs Date Time Temp Pulse Resp B/P Pulse Ox O2 Delivery O2 Flow Rate FiO2 10/30/16 19:54 97.9 97 18 110/55 Room Air Heart Rate: 130's Heart Rate Comments moderate variability, +accels, no decels Contractions: 6-10 Minutes Apart Exam 1.5/50/-2 Results/Medications Results 24 hrs Laboratory Tests Test 10/30/16 20:40 Membranes Rupture NEGATIVE Imaging Results PROCEDURE: Obstetrical ultrasound, limited. CLINICAL INDICATION: Pelvic pain. TECHNIQUE: Multiple sonographic images of the pelvis were obtained using transabdominal technique. Images were obtained with crews scale and color Doppler. The images were reviewed on a PACS workstation. COMPARISON: 08/22/2016. FINDINGS: There is a single living intrauterine gestation with the fetus in a vertex presentation. heart tones of 146 beats per minute are identified. The placenta is anterior in location, grade 2. There is normal amniotic fluid volume with an MANDEEP of 12.8 cm. IMPRESSION: Single viable intrauterine gestation. MANDEEP of 12.7 cm. Disposition: Discharge Assessment/Plan No e/o ROM given neg ROM plus and normal MANDEEP No e/o labor given unchanged SVE FWB reassuring, reactive NST Pt appropriate for d/c home Encouraged to call and schedule next appt after missing last week's appt [facility], ROM, Labor precautions reviewed Questions answered to patient's satisfaction HARLAN DARBY MD Oct 30, 2016 21:26
--- NOTE | 2016-10-30 22:20 | RADRPT ---
PROCEDURE: Obstetrical ultrasound, limited. CLINICAL INDICATION: Pelvic pain. TECHNIQUE: Multiple sonographic images of the pelvis were obtained using transabdominal technique . Images were obtained with crews scale and color Doppler. The images were reviewed on a PACS works tation. COMPARISON: 08/22/2016. FINDINGS: There is a single living intrauterine gestation with the fetus in a vertex presentation. hear t tones of 146 beats per minute are identified. The placenta is anterior in location, grade 2. The re is normal amniotic fluid volume with an MANDEEP of 12.8 cm. IMPRESSION: Single viable intrauterine gestation. MANDEEP of 12.7 cm. .Timbo Aguirre MD, MD Date Time Electronically viewed and signed by .Timbo Aguirre MD, MD on 10/30/2016 22:20 .T/
== END 2016-10-30 22:39 | disposition home or self-care (01) ==
LOC: OBT 19:26 → L-D 19:32 → OBT 22:39
PROVIDERS: ATTEND Obstetrics & Gynecology
DX: O47.1 False labor at or after 37 completed weeks of gestation (principal); Z3A.39 39 weeks gestation of pregnancy
CPT/HCPCS: 76815; 84112; Z7500; G0463

== ENCOUNTER 2016-11-10 10:38 | Inpatient (IN) | payer OTHER ==
[~2016-11-10] VITALS: Ht 157.5 cm; Wt 94.5 kg
[~2016-11-10 10:38] MED LIST changes: -METR500T14 PO; -NO MEDS
[2016-11-10 10:49] VITALS: BP 114/58; PULSE 96; Ht 157.5 cm; Wt 94.5 kg
--- NOTE | 2016-11-10 12:49 | RADRPT ---
PROCEDURE: Obstetrical ultrasound CLINICAL INDICATION: conflicting dates TECHNIQUE: Multiple sonographic images of the pelvis were obtained. The images were reviewed on a PACS workstation. COMPARISON: Obstetrical ultrasound from 10/30/2016 FINDINGS: The cervix is not well visualized. There is a single viable intrauterine gestation. Cardiac activity is present with 140 beats per minute. There is a vertex presentation. The placenta is anterior. There is no evidence for an abruption or placenta previa. There is a subjectively normal amount of amniotic fluid. Measurements were made in order to determine age. The results are as follows (cm): BPD =9.10 HC =32.83 AC =37.20 FL =7.05 Estimated gestational age by ultrasound of approximately 37 weeks, 6 days. The estimated date of delivery by ultrasound is 11/25/2016. Estimated gestational age by LMP of approximately 37 weeks, 6 days. The estimated date of delivery by LMP is 11/25/2016. EFW = 3698 grams (88th percentile) IMPRESSION: Single viable intrauterine gestation of approximately 37 weeks, 6 days . The estimated date of delivery is 11/25/2016 . Dating by ultrasound is consistent with dating by LMP. Cephalic presentation. Estimated weight is in the 88th percentile. RPTAT: EE Physician Jennifer Date Time Electronically viewed and signed by Physician Jennifer on 11/10/2016 12:49 /
--- NOTE | 2016-11-10 12:52 | RADRPT ---
PROCEDURE: US OB biophysical profile. CLINICAL INDICATION: decreased movements TECHNIQUE: Multiple sonographic images of the pelvis were obtained. The images were reviewed on a PACS workstation. COMPARISON: US PELVIS 10/30/2016 FINDINGS: There is a single viable intrauterine gestation. Cardiac activity is present with 158 beats per min [place]. There is a vertex presentation. The placenta is anterior. There is no evidence of placental abruption. There is an increased amount of amniotic fluid with an MANDEEP = 24.2 cm. Biophysical profile: movement 2/2 tone 2/2. breathing 2/2 MANDEEP 2/2 Total 10/18 RPTAT: AA . IMPRESSION: Normal biophysical profile. Polyhydramnios. . .Gaurav Pitt MD, Date Time Electronically viewed and signed by .Gaurav Pitt MD, MD on 11/10/2016 12:51 .S/
[2016-11-10] MEDS ORDERED: MISOPROSTOL 200 MCG TAB PR PRN (15:00)
[2016-11-10] MEDS ORDERED: OXYTOCIN 30 UNITS/LR 500 ML IV PRN (15:00)
[2016-11-10] MEDS ORDERED: BUTORPHANOL 2 MG INJ IV PRN ×2 (15:00)
[2016-11-10] MEDS ORDERED: CARBOPROST 250 MCG INJ IM PRN (15:00)
[2016-11-10] MEDS ORDERED: METHYLERGONOVINE 0.2 MG INJ IM PRN (15:00)
[2016-11-10] MEDS ORDERED: LIDOCAINE 1% (MPF) 30 ML INJ INJ PRN (15:00)
[2016-11-10] MEDS ORDERED: AMPICILLIN 2 GM/NS (PMX) 100 ML IV ONE (15:00)
[2016-11-10] MEDS ORDERED: LACTATED RINGER'S 1,000 ML IV PRN (15:00)
--- NOTE | 2016-11-10 15:50 | HP ---
Date/Time of Note Date/Time of Note DATE: 11/10/16 TIME: 15:32 OB - History Hx of Present Free Text/Dictation November 10, 2016 This is the history and physical for admission of this patient in the labor delivery room This patient is a 21 years old 2 para 1 living 1 0 with EDC of 11/01/2016. She came to the triage clinic due to contractions and slight vaginal bleeding. In looking at her record her estimated date of confinement is entered both and 11/25/2016. On examination she is a well-developed well-nourished patient near term or other postterm, No complaints except for occasional contractions and slight vaginal bleeding as well as edema of the lower extremity Her general vital signs appear to be normal with the blood pressure 114/58 pulse rate 96, respiration 18. and a temperature of 98.0 On physical examination her ear nose throat appears to be normal, neck is normal no neck vein distention no thyromegaly no lymph node enlargement anywhere in her body Chest is clear to auscultation her precaution no rales Heart normal sinus rhythm no murmur Breasts are soft free of masses Abdomen is soft, she does have contractions every 4 to 5 minutes The fundus is fairly large, heart tone is normal at this time. Looking at the tracing she does have fairly good variability and acceleration no decelerations. On pelvic examination the cervix was soft 1 fingertip dilated 60-70% effaced -2 station with intact membranes . Current Medications Medications (Trade) Dose Ordered Sig/Reymundo Route PRN Reason Start Time Stop Time Status Last Admin Dose Admin Lactated Ringer's 1,000 ml @ 125 mls/hr Q8H IV 11/10/16 14:44 Ampicillin 100 ml @ 100 mls/hr ONCE ONCE IV 11/10/16 15:00 11/10/16 15:59 Ampicillin (Ampicillin 1 Gm/ NS (Pmx)) 50 ml @ 100 mls/hr Q4H IV 11/10/16 19:00 Butorphanol Tartrate (Stadol) 1 mg Q2H PRN IV PAIN 11/10/16 15:00 Butorphanol Tartrate (Stadol) 2 mg Q2H PRN IV PAIN 11/10/16 15:00 Lidocaine 30 ml 30 ml ONCE PRN INJ EPISIOTOMY/TEARING 11/10/16 15:00 Lactated Ringer's 1,000 ml @ 2,000 mls/hr Q30M PRN IV PRE-EPIDURAL BOLUS 11/10/16 15:00 Oxytocin/Lactated Ringer's 500 ml @ 0 mls/hr ONCE PRN IV For Hemorrhage Management 11/10/16 15:00 Methylergonovine Maleate (Methergine) 0.2 mg ONCE PRN IM VAGINAL BLEEDING 11/10/16 15:00 Carboprost Tromethamine (Hemabate) 250 mcg ONCE PRN IM VAGINAL BLEEDING 11/10/16 15:00 Misoprostol (Cytotec) 1,000 mcg ONCE PRN [place] VAGINAL BLEEDING 11/10/16 15:00 : 2 Para: 1 Spontaneous : 0 Care: Good Care Ultrasounds: Abnormal US findings Past Family/Social History * Past Medical, :Surgical, Family and Obstetric Histories reviewed from chart. Current Medications Medications (Trade) Dose Ordered Sig/Reymundo Route PRN Reason Start Time Stop Time Status Last Admin Dose Admin Lactated Ringer's 1,000 ml @ 125 mls/hr Q8H IV 11/10/16 14:44 Ampicillin 100 ml @ 100 mls/hr ONCE ONCE IV 11/10/16 15:00 11/10/16 15:59 Ampicillin (Ampicillin 1 Gm/ NS (Pmx)) 50 ml @ 100 mls/hr Q4H IV 11/10/16 19:00 Butorphanol Tartrate (Stadol) 1 mg Q2H PRN IV PAIN 11/10/16 15:00 Butorphanol Tartrate (Stadol) 2 mg Q2H PRN IV PAIN 11/10/16 15:00 Lidocaine 30 ml 30 ml ONCE PRN INJ EPISIOTOMY/TEARING 11/10/16 15:00 Lactated Ringer's 1,000 ml @ 2,000 mls/hr Q30M PRN IV PRE-EPIDURAL BOLUS 11/10/16 15:00 Oxytocin/Lactated Ringer's 500 ml @ 0 mls/hr ONCE PRN IV For Hemorrhage Management 11/10/16 15:00 Methylergonovine Maleate (Methergine) 0.2 mg ONCE PRN IM VAGINAL BLEEDING 11/10/16 15:00 Carboprost Tromethamine (Hemabate) 250 mcg ONCE PRN IM VAGINAL BLEEDING 11/10/16 15:00 Misoprostol (Cytotec) 1,000 mcg ONCE PRN [place] VAGINAL BLEEDING 11/10/16 15:00 OB Admission Exam Vital Signs Vital Signs Vital Signs Date Time Temp Pulse Resp B/P Pulse Ox O2 Delivery O2 Flow Rate FiO2 11/10/16 10:49 98.0 96 114/58 MUSTAPHA SMITH MD Nov 10, 2016 15:45 MUSTAPHA SMITH MD Nov 10, 2016 15:45
[2016-11-10] MEDS: LACTATED RINGER'S 1,000 ML IV SCH ×2 (16:53→23:29)
[2016-11-10 16:58] LABS: BASOPHILS % 0.3 % (0.0-2.0); EOSINOPHILS # 0.1 10^3/ul (0.0-0.5); EOSINOPHILS % 1.4 % (0.0-7.0); HEMATOCRIT 30.3 % (37.0-47.0); HEMOGLOBIN 10.1 g/dl (12.0-16.0); LYMPHOCYTES # 1.5 10^3/ul (0.8-2.9); LYMPHOCYTES % 22.6 % (15.0-51.0); MEAN CORPUSCULAR HEMOGLOBIN 28.9 pg (29.0-33.0); MEAN CORPUSCULAR HGB CONC 33.3 g/dl (32.0-37.0); MEAN CORPUSCULAR VOLUME 86.6 fl (82.0-101.0); MEAN PLATELET VOLUME 11.2 fl (7.4-10.4); MONOCYTE # 0.5 10^3/ul (0.3-0.9); MONOCYTES % 7.3 % (0.0-11.0); NEUTROPHILS % 67.8 % (39.0-77.0); PLATELET COUNT 210 10^3/UL (140-415); RED CELL DISTRIBUTION WIDTH 14.6 % (11.5-14.5); WHITE BLOOD COUNT 6.6 10^3/ul (4.8-10.8)
[2016-11-10] MEDS ORDERED: OXYTOCIN 30 UNITS/LR 500 ML IV SCH (17:00)
[2016-11-10 17:30] LABS: INR 0.91; PROTIME 12.3 Sec (12.2-14.2)
[2016-11-10 17:31] LABS: PARTIAL THROMBOPLASTIN TIME 27.1 Sec (25.0-35.0)
[2016-11-10] MEDS: AMPICILLIN 1 GM/NS (PMX) 50 ML IV SCH (21:31)
[2016-11-10] MEDS ORDERED: NALOXONE (0.4 MG/ML) INJ ONE (23:42)
[2016-11-11] MEDS: LACTATED RINGER'S 1,000 ML IV SCH ×4 (00:40→23:08)
[2016-11-11] MEDS ORDERED: ONDANSETRON 4 MG INJ IV ONE (01:45)
[2016-11-11] MEDS ORDERED: ONDANSETRON 4 MG INJ ONE (01:46)
[2016-11-11] MEDS: AMPICILLIN 1 GM/NS (PMX) 50 ML IV SCH ×6 (01:51→22:04)
[2016-11-11 07:25] LABS: BARBITURATES Negative (NEGATIVE); BENZODIAZEPINES Negative (NEGATIVE); CANNABINOIDS Negative (NEGATIVE); COCAINE Negative (NEGATIVE); OPIATES Negative (NEGATIVE)
[2016-11-11] MEDS: OXYTOCIN 30 UNITS/LR 500 ML IV SCH (14:56)
[2016-11-12] MEDS: AMPICILLIN 1 GM/NS (PMX) 50 ML IV SCH ×6 (01:47→22:58)
[2016-11-12] MEDS: LACTATED RINGER'S 1,000 ML IV SCH ×3 (08:05→23:02)
[2016-11-12] MEDS ORDERED: FENTAnyl 2MCG/ML-ROPIV 0.2% 100 ML ONE (13:17)
[2016-11-12] MEDS ORDERED: DIPHENHYDRAMINE 50 MG INJ IV PRN (18:00)
[2016-11-12] MEDS ORDERED: ONDANSETRON 4 MG INJ IV PRN (18:00)
[2016-11-12] MEDS ORDERED: NALOXONE (0.4 MG/ML) INJ IV PRN (18:00)
[2016-11-12] MEDS: FENTAnyl 2MCG/ML-ROPIV 0.2% 100 ML BAG EPI SCH (20:07)
[2016-11-12] MEDS: OXYTOCIN 30 UNITS/LR 500 ML IV SCH (23:00)
[2016-11-13] MEDS: LACTATED RINGER'S 1,000 ML IV SCH (00:47)
[2016-11-13] MEDS: FENTAnyl 2MCG/ML-ROPIV 0.2% 100 ML BAG EPI SCH (03:48)
[2016-11-13] MEDS: AMPICILLIN 1 GM/NS (PMX) 50 ML IV SCH ×2 (03:50→06:58)
[2016-11-13] MEDS ORDERED: MINERAL OIL LIGHT 10 ML VIAL ONE (10:10)
--- NOTE | 2016-11-13 11:55 | LDN ---
Date/Time of Note Date/Time of Note DATE: 11/13/16 TIME: 11:51 Delivery Summary Normal spontaneous vaginal delivery of a baby girl from OA position shoulders delivered without any difficulties rest of the baby's body followed cord clamped after stopped pulsation placenta spontaneous expulsion picked at it was complete patient sustained small first-degree perineal laceration which repaired with 3 and 4-0 chromic catgut estimated blood loss 200 cc Weeks of Gestation 38 weeks 1 day Placenta Delivered: Spontaneously Meconium: none Episiotomy: No Perineal laceration: 1 Laceration repair: Small first-degree perineal laceration repaired with 3-0 and 4-0 chromic catgut Anesthesia type: Epidural Sponge & Needle done & correct: Yes All needle counts correct: Yes Any foreign bodies felt in the: No Problems: Infant Delivery Information Sex Infant Sex: female Apgars 1 Minute: 8 5 Minute: 9 Suctioning Delee suction performed: No Umbilical Cord Umbilical cord with: 3 Vessels Cord presentations: no nuchal cord Cord Blood was obtained: Yes CATHERINE MATHIS MD Nov 13, 2016 11:55
[2016-11-13] MEDS: OXYTOCIN 30 UNITS/LR 500 ML IV SCH ×4 (12:11→20:53)
[2016-11-13] MEDS ORDERED: IBUPROFEN 600 MG TAB PO SCH (14:30)
[2016-11-13 15:30] VITALS: BP 127/56; PULSE 81
[2016-11-13] MEDS: BENZOCAINE 20% 56 ML SPRAY TOP PRN (15:49)
[2016-11-13] MEDS: LANOLIN 7 GM TUBE TOP PRN (15:50)
[2016-11-13] MEDS: WITCH HAZEL/GLYCERIN PAD PR PRN (15:50)
[2016-11-13] MEDS ORDERED: OXYCODONE/ASPIRIN (4.88/325) TAB PO PRN ×2 (16:00)
[2016-11-13] MEDS ORDERED: ACETAMINOPHEN 325 MG TAB PO PRN (16:00)
[2016-11-13] MEDS ORDERED: HYDROCODONE/APAP (5/325) TAB PO PRN ×2 (16:00)
[2016-11-13] MEDS ORDERED: ONDANSETRON 4 MG INJ IV PRN (16:00)
[2016-11-13] MEDS ORDERED: DIBUCAINE 1% 30 GM OINT PR PRN (16:00)
[2016-11-13] MEDS: IBUPROFEN 600 MG TAB PO SCH (17:40)
[2016-11-13 20:40] VITALS: BP 114/61; PULSE 71; RESP 18
[2016-11-13] MEDS: SENNA/DOCUSATE NA (8.6MG/50MG) TAB PO SCH (20:52)
[2016-11-14 04:00] VITALS: BP 105/59; PULSE 71; RESP 17
[2016-11-14] MEDS: IBUPROFEN 600 MG TAB PO SCH ×5 (05:41→23:56)
[2016-11-14 07:52] LABS: BASOPHILS % 0.3 % (0.0-2.0); EOSINOPHILS # 0.1 10^3/ul (0.0-0.5); EOSINOPHILS % 1.3 % (0.0-7.0); HEMOGLOBIN 9.2 g/dl (12.0-16.0); LYMPHOCYTES # 1.5 10^3/ul (0.8-2.9); LYMPHOCYTES % 17.1 % (15.0-51.0); MEAN CORPUSCULAR HEMOGLOBIN 28.9 pg (29.0-33.0); MEAN CORPUSCULAR HGB CONC 32.9 g/dl (32.0-37.0); MEAN CORPUSCULAR VOLUME 88.1 fl (82.0-101.0); MEAN PLATELET VOLUME 11.6 fl (7.4-10.4); MONOCYTE # 0.8 10^3/ul (0.3-0.9); MONOCYTES % 8.9 % (0.0-11.0); NEUTROPHILS % 71.9 % (39.0-77.0); PLATELET COUNT 171 10^3/UL (140-415); RED BLOOD COUNT 3.18 10^6/ul (4.20-5.40); RED CELL DISTRIBUTION WIDTH 14.7 % (11.5-14.5); WHITE BLOOD COUNT 8.7 10^3/ul (4.8-10.8)
[2016-11-14 08:13] VITALS: BP 109/61; PULSE 71; RESP 18
[2016-11-14] MEDS: SENNA/DOCUSATE NA (8.6MG/50MG) TAB PO SCH ×2 (11:50→20:27)
--- NOTE | 2016-11-14 15:24 | PN ---
Date/Time of Note Date/Time of Note DATE: 11/14/16 TIME: 15:22 OB Subjective Subjective Subjective Post normal vaginal delivery day 1 Afebrile vital signs are stable Abdomen soft Uterus firm Lochia normal Extremity normal Ambulation encouraged Laboratory Tests Test 11/14/16 07:06 White Blood Count 8.710^3/ul Red Blood Count 3.1810^6/ul Hemoglobin 9.2g/dl Hematocrit 28.0% Mean Corpuscular Volume 88.1fl Mean Corpuscular Hemoglobin 28.9pg Mean Corpuscular Hemoglobin Concent 32.9g/dl Red Cell Distribution Width 14.7% Platelet Count 52557^3/UL Mean Platelet Volume 11.6fl Neutrophils % 71.9% Lymphocytes % 17.1% Monocytes % 8.9% Eosinophils % 1.3% Basophils % 0.3% Nucleated Red Blood Cells % 0.0/100WBC Neutrophils # (Manual) 6.310^3/ul Lymphocytes # 1.510^3/ul Monocytes # 0.810^3/ul Eosinophils # 0.110^3/ul Basophils # 0.010^3/ul Nucleated Red Blood Cells # 0.010^3/ul Current Medications Medications (Trade) Dose Ordered Sig/Reymundo Route PRN Reason Start Time Stop Time Status Last Admin Dose Admin Lactated Ringer's 1,000 ml @ 125 mls/hr Q8H IV 11/10/16 14:44 11/13/16 15:37 DC 11/13/16 00:47 Ampicillin 100 ml @ 100 mls/hr ONCE ONCE IV 11/10/16 15:00 11/10/16 15:59 DC 11/10/16 17:36 Ampicillin (Ampicillin 1 Gm/ NS (Pmx)) 50 ml @ 100 mls/hr Q4H IV 11/10/16 19:00 11/12/16 23:12 DC 11/12/16 22:58 Butorphanol Tartrate (Stadol) 1 mg Q2H PRN IV PAIN 11/10/16 15:00 11/13/16 15:37 DC 11/12/16 11:05 Butorphanol Tartrate (Stadol) 2 mg Q2H PRN IV PAIN 11/10/16 15:00 11/13/16 15:37 DC 11/10/16 23:29 Lidocaine 30 ml 30 ml ONCE PRN INJ EPISIOTOMY/TEARING 11/10/16 15:00 11/13/16 15:37 DC Lactated Ringer's 1,000 ml @ 2,000 mls/hr Q30M PRN IV PRE-EPIDURAL BOLUS 11/10/16 15:00 11/13/16 15:37 DC 11/12/16 13:07 Oxytocin/Lactated Ringer's 500 ml @ 0 mls/hr ONCE PRN IV For Hemorrhage Management 11/10/16 15:00 11/13/16 15:37 DC Methylergonovine Maleate (Methergine) 0.2 mg ONCE PRN IM VAGINAL BLEEDING 11/10/16 15:00 11/13/16 15:37 DC Carboprost Tromethamine (Hemabate) 250 mcg ONCE PRN IM VAGINAL BLEEDING 11/10/16 15:00 11/13/16 15:37 DC Misoprostol 1000 mcg 1,000 mcg ONCE PRN [place] VAGINAL BLEEDING 11/10/16 15:00 11/13/16 15:37 DC Oxytocin/Lactated Ringer's 500 ml @ 125 mls/hr ONCE -MAY REPEAT X1 IV 11/10/16 17:00 11/13/16 15:37 DC 11/13/16 12:12 Oxytocin/Lactated Ringer's 500 ml @ 125 mls/hr ONCE IV 11/10/16 17:00 11/13/16 15:37 DC Naloxone HCl (Narcan) 0.4 mg STK-MED ONCE .ROUTE 11/10/16 23:42 11/10/16 23:43 DC Ondansetron HCl (Zofran Inj) 4 mg STK-MED ONCE .ROUTE 11/11/16 01:46 11/11/16 01:47 DC Ondansetron HCl 4 mg 4 mg PRN ONCE IV 11/11/16 01:45 11/11/16 01:50 DC 11/11/16 01:54 Oxytocin/Lactated Ringer's 500 ml @ 0 mls/hr Q0M IV 11/11/16 11:00 11/13/16 15:37 DC 11/12/16 23:00 Fentanyl/ Ropivacaine 100 ml @ ud STK-MED ONCE .ROUTE 11/12/16 13:17 11/12/16 13:18 DC Naloxone HCl (Narcan) 0.1 mg Q2M PRN IV FOR RESP RATE 8 OR LESS 11/12/16 18:00 11/13/16 15:37 DC Diphenhydramine HCl (Benadryl) 25 mg Q6H PRN IV ITCHING 11/12/16 18:00 11/13/16 15:37 DC Ondansetron HCl (Zofran Inj) 4 mg Q6H PRN IV NAUSEA AND/OR VOMITING 11/12/16 18:00 11/13/16 15:37 DC 11/12/16 19:26 Fentanyl/ Ropivacaine 100 ml 100 ml EPIDURAL INFUSION EPI 11/12/16 18:00 11/13/16 15:37 DC 11/13/16 03:48 Ampicillin (Ampicillin 1 Gm/ NS (Pmx)) 50 ml @ 100 mls/hr Q4H IV 11/13/16 03:00 11/13/16 15:37 DC 11/13/16 06:58 Mineral Oil (Muri-Lube) 10 ml STK-MED ONCE .ROUTE 11/13/16 10:10 11/13/16 10:11 DC Ibuprofen 600 mg 600 mg Q6 PO 11/13/16 14:30 11/13/16 15:37 DC 11/13/16 14:24 Oxytocin/Lactated Ringer's 500 ml @ 125 mls/hr Q4H IV 11/13/16 15:35 11/13/16 23:34 DC 11/13/16 20:53 Ibuprofen (Motrin) 600 mg Q6 PO 11/13/16 18:00 11/14/16 11:50 Acetaminophen (Tylenol Tab) 650 mg Q4H PRN PO PAIN LEVEL 1-5 11/13/16 16:00 Acetaminophen/ Hydrocodone Bitart ([place] (5/325)) 1 tab Q4H PRN PO PAIN LEVEL 1-5 11/13/16 16:00 Acetaminophen/ Hydrocodone Bitart ([place] (5/325)) 2 tab Q4H PRN PO PAIN LEVEL 6-10 11/13/16 16:00 Oxycodone/Aspirin (Percodan) 1 tab Q3H PRN PO PAIN LEVEL 1-5 11/13/16 16:00 Oxycodone/Aspirin (Percodan) 2 tab Q3H PRN PO PAIN LEVEL 6-10 11/13/16 16:00 11/13/16 21:24 Ondansetron HCl (Zofran Inj) 4 mg Q6H PRN IV NAUSEA AND/OR VOMITING 11/13/16 16:00 Senna/Docusate Sodium (Senokot-S) 1 tab BID PO 11/13/16 21:00 11/14/16 11:50 Witch Sandrita/ Glycerin (Tucks Pads) 1 pad BEDSIDE MEDICATION PRN [place] HEMORRHOID/EPISIOTMY PAIN 11/13/16 16:00 11/13/16 15:50 Benzocaine (Dermoplast [place]) 1 spray BEDSIDE MEDICATION PRN TOP HEMORRHOID/EPISIOTMY PAIN 11/13/16 16:00 11/13/16 15:49 Dibucaine (Nupercainal) 1 applic BEDSIDE MEDICATION PRN [place] HEMORRHOID/EPISIOTMY PAIN 11/13/16 16:00 11/13/16 15:50 Lanolin (Ouj-E-Ihnqqj) 1 applic BEDSIDE MEDICATION PRN TOP BEDSIDE FOR ULZ MARIA TO NIPPLES 11/13/16 16:00 11/13/16 15:50 Measles/Mumps/ Rubella Vaccine Live (Mmr Ii Vaccine) 0.5 ml ONCE ONCE SC* 11/15/16 09:00 11/15/16 09:01 CATHERINE MATHIS MD Nov 14, 2016 15:24
[2016-11-14 16:15] VITALS: BP 99/52; PULSE 80; RESP 18
[2016-11-14 20:30] VITALS: BP 103/73; PULSE 82; RESP 18
[2016-11-14] MEDS: BENZOCAINE 20% 56 ML SPRAY TOP PRN (23:56)
[2016-11-15 04:17] VITALS: BP 106/62; PULSE 66
[2016-11-15] MEDS: IBUPROFEN 600 MG TAB PO SCH ×2 (06:00→11:55)
[2016-11-15 08:00] VITALS: BP 128/44; PULSE 128; RESP 18
[2016-11-15] MEDS: SENNA/DOCUSATE NA (8.6MG/50MG) TAB PO SCH (08:14)
[2016-11-15] MEDS ORDERED: MEASLES,MUMPS,RUBELLA VACCINE INJ SC* ONE (09:00)
[2016-11-15] MEDS: LANOLIN 7 GM TUBE TOP PRN (09:36)
[2016-11-15] MEDS: WITCH HAZEL/GLYCERIN PAD PR PRN (09:36)
[2016-11-15] MEDS: BENZOCAINE 20% 56 ML SPRAY TOP PRN (09:36)
--- NOTE | 2016-11-15 09:44 | PD.PPDC ---
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
--- NOTE | 2016-11-15 09:49 | DS ---
Date/Time of Note Date/Time of Note DATE: 11/15/16 TIME: 09:45 Discharge Summary Admission/Discharge Info Admit Date/Time Nov 10, 2016 at 14:40 Discharge Date/Time November 15, 2016 at 945 Discharge Diagnosis Day 2 post normal vaginal delivery Patient Condition: Good Procedures Normal vaginal delivery Hx of Present Illness Term in labor Hospital Course Satisfactory uneventful Home Meds Reported Medications Vits W-Ca,Fe,Fa(<1MG) () 1 Tab Tablet, 1 TAB PO DAILY 04/01/12 Follow-up Plan instructions given recommended to make appointment to be seen at the clinic in 2weeks Primary Care Provider [facility] Time spent on discharge: < 30 minutes CATHERINE MATHIS MD Nov 15, 2016 09:49
== END 2016-11-15 16:03 | disposition home or self-care (01) | DRG 775 ==
LOC: OBT 10:38 → L-D 10:38 → OBT 14:42 → L-D 15:54 → PP1 11-13 15:31
PROVIDERS: ADMIT Obstetrics & Gynecology; ATTEND Obstetrics & Gynecology
PROC: 10E0XZZ Delivery of Products of Conception, External Approach (ICD-10-PCS; principal; 2016-11-13)
PROC: 0HQ9XZZ Repair Perineum Skin, External Approach (ICD-10-PCS; 2016-11-13)
DX: O70.0 First degree perineal laceration during delivery (principal); Z37.0 Single live birth; Z3A.38 38 weeks gestation of pregnancy
CPT/HCPCS: 62319; 76815; 76818; 80307; 85025; 85610; 85730; 86592; 86900; 86901; 87340; 99464; G0463; J0290; J0595; J2310; J2405; J2590; J3010; J7120

== ENCOUNTER 2017-12-13 10:45 | Inpatient (IN) | END 2017-12-16 17:05 | disposition home or self-care (01) | DRG 807 ==

== ENCOUNTER 2017-12-22 09:24 | Emergency (ER) | END 2017-12-22 12:26 | disposition home or self-care (01) ==